=== PATIENT | male | born 1950 | race Caucasian/White ===

== ENCOUNTER 2020-11-08 11:49 | Inpatient (IN) | payer MEDICARE, OTHER ==
[~2020-11-08] VITALS: Ht 182.9 cm; Wt 132.2 kg
[2020-11-08 12:35] LABS: HEMOGLOBIN 16.8 gm/dl (14.0-17.5); RED BLOOD COUNT 5.3 M/UL (4.20-5.50); WHITE BLOOD COUNT 12.3 K/UL (4.5-11.0)
[2020-11-08] MEDS ORDERED: TIZANIDINE HCL4 MG PO (23:08)
[2020-11-08] MEDS ORDERED: LEVOTHYROXINE150 MCG PO (23:08)
[2020-11-08] MEDS ORDERED: ASPIRIN EC81 MG PO (23:08)
[2020-11-08] MEDS ORDERED: BENADRYL ITCH28.3 G1 TP (23:10)
[2020-11-08] MEDS ORDERED: FENOFIBRATE160 MG PO (23:11)
[2020-11-08] MEDS ORDERED: DIABETA 5 MG TAB5 MG PO (23:11)
[2020-11-08] MEDS ORDERED: IBU800 MG PO (23:12)
[2020-11-08] MEDS ORDERED: KETOCONAZOLE120 ML TP (23:13)
[2020-11-08] MEDS ORDERED: METFORMIN HCL1000 MG PO (23:13)
[2020-11-08] MEDS ORDERED: ROPINIROLE HCL0.5 MG PO (23:14)
[2020-11-08] MEDS ORDERED: PRAVASTATIN SOD20 MG PO (23:14)
[2020-11-08] MEDS ORDERED: PHARBETOL500 MG PO (23:15)
[2020-11-08] MEDS ORDERED: PIOGLITAZONE HC45 MG PO (23:16)
[2020-11-08] MEDS ORDERED: BD ULTRA-FINE1 EAC5 MC (23:17)
[2020-11-08] MEDS ORDERED: BASAGLAR K100 UNIT/1 SC (23:18)
[2020-11-08] MEDS ORDERED: VITAMIN D 40400 UNIT PO (23:18)
[2020-11-09 07:11] LABS: HEMOGLOBIN 14.9 gm/dl (14.0-17.5); RED BLOOD COUNT 4.91 M/UL (4.20-5.50); WHITE BLOOD COUNT 12.4 K/UL (4.5-11.0)
[2020-11-09 07:32] LABS: BUN/CREATININE RATIO 26 (0-10)
[2020-11-10 02:57] LABS: HEMOGLOBIN 15.3 gm/dl (14.0-17.5); RED BLOOD COUNT 4.76 M/UL (4.20-5.50)
[2020-11-10 03:14] LABS: BUN/CREATININE RATIO 23 (0-10)
[2020-11-11 06:12] LABS: HEMOGLOBIN 14.4 gm/dl (14.0-17.5); RED BLOOD COUNT 4.54 M/UL (4.20-5.50); WHITE BLOOD COUNT 7.3 K/UL (4.5-11.0)
[2020-11-11 07:48] LABS: BUN/CREATININE RATIO 17 (0-10)
[2020-11-12 05:35] LABS: BUN/CREATININE RATIO 17 (0-10)
[2020-11-12 05:50] LABS: HEMOGLOBIN 14.2 gm/dl (14.0-17.5); RED BLOOD COUNT 4.52 M/UL (4.20-5.50); WHITE BLOOD COUNT 6.6 K/UL (4.5-11.0)
[2020-11-12] MEDS ORDERED: ELIQUIS 5 MG TAB5 MG PO ×2 (14:45→15:03)
== END 2020-11-12 16:55 | disposition home or self-care (01) | DRG 175 ==
LOC: ER1 11:49 → CDU 18:07 → PROG CARE 18:07
PROVIDERS: Internal Medicine Infectious Disease; Physician Assistant; ADMIT Internal Medicine
PROC: B24BZZ4 Ultrasonography of Heart with Aorta, Transesophageal (ICD-10-PCS; principal; 2020-11-09)
DX: I26.94 Multiple subsegmental thrombotic pulmonary emboli without acute cor pulmonale (principal); J96.00 Acute respiratory failure, unspecified whether with hypoxia or hypercapnia; E87.2 Acidosis; N17.9 Acute kidney failure, unspecified; I10 Essential (primary) hypertension; G89.29 Other chronic pain; Z20.822 Contact with and (suspected) exposure to COVID-19; E03.9 Hypothyroidism, unspecified; E78.5 Hyperlipidemia, unspecified; F03.90 Unspecified dementia, unspecified severity, without behavioral disturbance, psychotic disturbance, mood disturbance, and anxiety; H54.8 Legal blindness, as defined in USA; E11.40 Type 2 diabetes mellitus with diabetic neuropathy, unspecified; I07.1 Rheumatic tricuspid insufficiency; G47.33 Obstructive sleep apnea (adult) (pediatric); E87.5 Hyperkalemia; Z79.4 Long term (current) use of insulin; Z88.8 Allergy status to other drugs, medicaments and biological substances; Z87.891 Personal history of nicotine dependence; Z83.3 Family history of diabetes mellitus; Z90.49 Acquired absence of other specified parts of digestive tract
CPT/HCPCS: ECHO; 36415; 36600; 71045; 71046; 80048; 80053; 82550; 82553; 82803; 82962; 83036; 83605; 83735; 83874; 83880; 84439; 84443; 84484; 85025; 85027; 85379; 85730; 87040; 93005; 93306; 93970; 96372; 96374; 96375; 96376; 99285; J0456; J0696; J1644; J1650; J7030; J7050; Q9967; U0002

== ENCOUNTER → 2021-01-23 | Outpatient (CLI) | payer MEDICARE, OTHER ==
[~2021-01-23] MED LIST: ASPIRIN EC81 MG PO; BASAGLAR K100 UNIT/1 SC; BD ULTRA-FINE1 EAC5 MC; BENADRYL ITCH28.3 G1 TP; DIABETA 5 MG TAB5 MG PO; ELIQUIS 5 MG TAB5 MG PO; FENOFIBRATE160 MG PO; IBU800 MG PO; KETOCONAZOLE120 ML TP; LEVOTHYROXINE150 MCG PO; METFORMIN HCL1000 MG PO; PHARBETOL500 MG PO; PIOGLITAZONE HC45 MG PO; PRAVASTATIN SOD20 MG PO; ROPINIROLE HCL0.5 MG PO; TIZANIDINE HCL4 MG PO; VITAMIN D 40400 UNIT PO
== END ==
LOC: HEART 5 09:18
DX: R06.00 Dyspnea, unspecified (principal)
CPT/HCPCS: 94010